=== PATIENT | male | born 1935 | race Caucasian/White ===

== ENCOUNTER → 2017-05-01 | Outpatient (CLI) | payer OTHER | LOC: FIMAGING 12:57 | PROVIDERS: ATTEND Internal Medicine Hematology & Oncology | DX: R09.89 Other specified symptoms and signs involving the circulatory and respiratory systems (principal); D69.6 Thrombocytopenia, unspecified ==

== ENCOUNTER → 2017-11-22 | Outpatient (CLI) | payer OTHER | LOC: FIMAGING 12:39 | PROVIDERS: ATTEND Internal Medicine | DX: R63.4 Abnormal weight loss (principal) ==